=== PATIENT | male | born 1985 | race Caucasian/White ===

== ENCOUNTER 2019-02-17 20:00 | Emergency (ER) | payer MEDICAID ==
[~2019-02-17] VITALS: Ht 177.8 cm; Wt 102.1 kg
[2019-02-17 20:06] VITALS: BP 130/100
--- NOTE | 2019-02-17 20:19 | NUR ---
PT TAKEN TO BED 03 VIA WC. SISTER IN LAW ACCOMPANYING.
--- NOTE | 2019-02-17 20:29 | NUR ---
33 Y/O PRESENTS TO ED, C/O OF NAUSEA AND VOMITTING X1 DAY. PT ENDORSED DRINKING 24 BOTTLES OF BEER YESTERDAY. HAS BEEN THROWING UP ALL DAY TODAY. UNABLE TO TOLERATE FOOD AND FLUIDS. PT STATES DRINKING 1 TO 2 BEERS DAILY. C/O OF NUMBNESS ON FACE. 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 NO SLURRED SPEECH. MILD TREMORS ON BILAT HANDS. DENIES ANY PAIN. NO SOB. PT VSS. ER PA AWARE. WILL CONTINUE TO MONITOR.
[2019-02-17] MEDS ORDERED: ONDANSETRON 4 MG ODT PO ONE (20:35)
--- NOTE | 2019-02-17 21:40 | NUR ---
PO CHALLENGE PASSED. NO N/V.
[2019-02-17 21:48] VITALS: BP 130/100
--- NOTE | 2019-02-17 21:48 | NUR ---
Patient discharged with v/s stable. Written and verbal after care instructions given and explained. Pt encouraged to drink plenty of fluids. Patient alert, oriented and verbalized understanding of instructions. Ambulatory with steady gait. All questions addressed prior to discharge. ID band removed. Patient advised to follow up with PMD. Rx of Librium 25mg and Zofran 4mg was given. Patient educated on indication of medication including possible reaction and side effects. Opportunity to ask questions provided and answered.
== END 2019-02-17 21:48 | disposition home or self-care (01) ==
LOC: MED 20:00
DX: F10.239 Alcohol dependence with withdrawal, unspecified (principal); R11.2 Nausea with vomiting, unspecified; F12.90 Cannabis use, unspecified, uncomplicated
CPT/HCPCS: 99283; Q0162

== ENCOUNTER 2019-05-30 19:32 | Emergency (ER) | payer MEDICAID ==
[~2019-05-30] VITALS: Ht 180.3 cm; Wt 107.7 kg
[2019-05-30 20:00] VITALS: BP 127/78
[2019-05-30] MEDS ORDERED: ACETAMINOPHEN 325 MG TAB PO ONE (20:10)
[2019-05-30] MEDS ORDERED: ACETAMINOPHEN EXTRA STRENGTH 500 MG TAB PO ONE (20:20)
--- NOTE | 2019-05-30 20:35 | NUR ---
MEDICATED WITH 1000 MG PO TYLENOL FOR FEVER 100.5. WILL REASSESS.
--- NOTE | 2019-05-30 21:47 | NUR ---
PT AMBULATED TO BED 6 WITH FAMILY MEMBER
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
[2019-05-30 22:24] VITALS: BP 127/78
--- NOTE | 2019-05-30 22:24 | NUR ---
DISCHARGE BY DR KENYON. Patient discharged with v/s stable. Written and verbal after care instructions ABOUT ACUTE BRONCHITIS given and explained. Patient alert, oriented and verbalized understanding of instructions. Ambulatory with steady gait. All questions addressed prior to discharge. ID band removed. Patient advised to follow up with PMD. Rx of NAPROSYN, AUGMENTIN, TESSALON PERLES given. Patient educated on indication of medication including possible reaction and side effects. Opportunity to ask questions provided and answered.
== END 2019-05-30 22:24 | disposition home or self-care (01) ==
LOC: MED 19:32
DX: J20.9 Acute bronchitis, unspecified (principal); J02.9 Acute pharyngitis, unspecified; R07.81 Pleurodynia; F12.10 Cannabis abuse, uncomplicated; K21.9 Gastro-esophageal reflux disease without esophagitis; Z90.49 Acquired absence of other specified parts of digestive tract
CPT/HCPCS: 99283